=== PATIENT | female | born 1935 | race Two or more races ===

== ENCOUNTER 2017-12-18 16:14 | Inpatient (IN) | payer MEDICARE, OTHER ==
[~2017-12-18] VITALS: Ht 154.9 cm; Wt 47.9 kg
[2017-12-18 17:32] LABS: Basophils # (auto) 0 uL; Basophils % (auto) 0.5 % (0.0-2.0); Eosinophils # (auto) 0 uL; Hematocrit 30.2 % (36.0-46.0); Lymphocytes # (auto) 0.5 uL; Lymphocytes % (auto) 12.5 % (10.0-50.0); Mean Corpuscular Hemoglobin 31.4 pg (28.0-32.0); Mean Corpuscular Hgb Conc. 33.1 g/dL (32.0-36.0); Monocytes # (auto) 0.2 uL; Monocytes % (auto) 4.6 % (0.0-12.0); Neutrophils # (auto) 3.1 uL; Neutrophils % (auto) 82.4 % (37.0-80.0); Platelet Count (auto) 215 10^3/uL (140-450); Red Blood Cells 3.18 10^6/uL (4.0-5.20); Red Cell Distribution Width 14.3 % (11.8-14.3); White Blood Cell 3.8 10^3/uL (4.4-10.8)
[2017-12-18 18:01] LABS: Alanine Aminotransferase 19 U/L (13-56); Albumin 2.7 g/dL (3.4-5.0); Alkaline Phosphatase 102 U/L (45-117); Anion Gap 8 (5-15); Aspartate Aminotransferase 27 U/L (15-37); BUN/Creatinine Ratio 18.9; Bilirubin, Total 0.5 mg/dL (0.2-1.0); Blood Urea Nitrogen 38 mg/dL (7-18); Calcium 7.9 mg/dL (8.5-10.1); Carbon Dioxide 20 mmol/L (21-32); Chloride 107 mmol/L (98-107); GFR African American 31 mL/min; GFR Non-African American 25 mL/min; Glucose 94 mg/dL (74-106); Potassium 4.4 mmol/L (3.5-5.1); Sodium 135 mmol/L (136-145); Total Protein 7.8 g/dL (6.4-8.2)
[2017-12-18] MEDS ORDERED: SODIUM CHLORIDE 0.9% 1,000 ML IVB ONE (18:16)
[2017-12-18] MEDS ORDERED: ACETAMINOPHEN 325 MG TAB PO ONE (18:30)
[2017-12-18 19:15] LABS: INR 1.02 (0.9-1.15); Partial Thromboplastin Time 29.4 sec (23.78-33.04); Prothrombin Time 10.9 sec (9.27-12.13)
[2017-12-18] MEDS ORDERED: TEMAZEPAM 15 MG CAP PO PRN (21:30)
[2017-12-18] MEDS ORDERED: ACETAMINOPHEN 325 MG TAB PO PRN (21:30)
[2017-12-18] MEDS ORDERED: ONDANSETRON HCL 4 MG/2 ML VIAL IV PRN (21:30)
[2017-12-18] MEDS ORDERED: HYDROcodone-ACET 5/325MG TAB PO PRN (21:30)
[2017-12-18] MEDS ORDERED: DOCUSATE SOD 100 MG CAP PO PRN (21:30)
[2017-12-18 22:30] VITALS: BP 167/81
[2017-12-18] MEDS ORDERED: LEVOFLOXACIN 250MG 50 ML IV ONE (23:00)
[2017-12-18] MEDS ORDERED: methylPREDNISolone SOD SUCC 125 MG/2 ML VL IV ONE (23:15)
[2017-12-18 23:17] VITALS: BP 167/81
[2017-12-18] MEDS: hydrALAZINE HCL 25 MG TAB PO SCH (23:41)
[2017-12-18] MEDS: METOPROLOL TARTRATE 50 MG TAB PO SCH (23:42)
[2017-12-19] MEDS: ALBUTEROL SULF 2.5 MG/0.5ML(0.5%) NEB SOLN NEB PRN ×2 (00:03→06:41)
[2017-12-19 01:18] VITALS: BP 167/81
[2017-12-19] MEDS ORDERED: HYDR-4296 PO (04:22)
[2017-12-19] MEDS ORDERED: LEVO25TA6 PO (04:24)
[2017-12-19] MEDS ORDERED: SODI650T PO (04:26)
[2017-12-19] MEDS ORDERED: FURO20TA3 PO (04:32)
[2017-12-19] MEDS ORDERED: SODI15SU PO (04:32)
[2017-12-19] MEDS ORDERED: AML5T PO (04:34)
[2017-12-19] MEDS ORDERED: METO25TA5 PO (04:34)
[2017-12-19] MEDS ORDERED: MAGN400T5 PO (04:35)
[2017-12-19] MEDS ORDERED: HYDR200T36 PO (04:37)
[2017-12-19 05:22] VITALS: BP 152/72
[2017-12-19 05:50] LABS: Basophils # (auto) 0 uL; Basophils % (auto) 0.1 % (0.0-2.0); Eosinophils # (auto) 0 uL; Hematocrit 28.6 % (36.0-46.0); Hemoglobin 9.5 g/dL (12.2-16.2); Lymphocytes # (auto) 0.4 uL; Lymphocytes % (auto) 7.2 % (10.0-50.0); Mean Corpuscular Hemoglobin 31.7 pg (28.0-32.0); Mean Corpuscular Hgb Conc. 33.4 g/dL (32.0-36.0); Monocytes # (auto) 0.1 uL; Monocytes % (auto) 1.1 % (0.0-12.0); Neutrophils # (auto) 5.3 uL; Neutrophils % (auto) 91.6 % (37.0-80.0); Platelet Count (auto) 214 10^3/uL (140-450); Red Blood Cells 3.01 10^6/uL (4.0-5.20); Red Cell Distribution Width 14.3 % (11.8-14.3); White Blood Cell 5.8 10^3/uL (4.4-10.8)
[2017-12-19] MEDS: hydrALAZINE HCL 25 MG TAB PO SCH ×3 (06:03→20:19)
[2017-12-19] MEDS: FUROSEMIDE 20 MG TAB PO SCH ×2 (06:05→18:00)
[2017-12-19 06:14] LABS: Albumin 2.5 g/dL (3.4-5.0); BUN/Creatinine Ratio 20.9; Bilirubin, Total 0.4 mg/dL (0.2-1.0); Calcium 7.7 mg/dL (8.5-10.1); Potassium 4.8 mmol/L (3.5-5.1); Total Protein 7.5 g/dL (6.4-8.2)
[2017-12-19] MEDS ORDERED: LEVOTHYROXINE SODIUM 25 MCG TAB PO SCH (07:00)
[2017-12-19 07:23] LABS: Urine Blood 3+ /uL (Negative); Urine Mucus FEW (None Seen); Urine Specific Gravity 1.013 (1.001-1.035); Urine Sperm PRESENT /hpf (None Seen); Urine WBC 422 /hpf (0 - 5); Urine WBC Clumps PRESENT /hpf (None Seen)
[2017-12-19] MEDS ORDERED: PANTOPRAZOLE 40 MG TAB PO SCH (07:30)
[2017-12-19 07:35] LABS: Urine Bacteria MANY /hpf (None Seen)
[2017-12-19 09:00] VITALS: BP 158/78
[2017-12-19] MEDS ORDERED: HYDROXYCHLOROQUINE SULFATE 200 MG TAB PO SCH (10:00)
[2017-12-19] MEDS: METOPROLOL TARTRATE 50 MG TAB PO SCH ×2 (10:35→20:19)
[2017-12-19 13:00] VITALS: BP 140/59
[2017-12-19] MEDS ORDERED: LEVOFLOXACIN 750MG 150 ML IV SCH (16:15)
[2017-12-19 16:28] LABS: % Iron Saturation 23.6 % (15-50)
[2017-12-19] MEDS ORDERED: SODIUM CHLORIDE 0.9% 1,000 ML IV SCH (16:30)
[2017-12-19 16:36] LABS: Folate (Folic Acid) > 24.00 ng/mL (5.38-24)
[2017-12-19 17:00] VITALS: BP 167/77
[2017-12-19] MEDS ORDERED: LEVOFLOXACIN 250MG 50 ML IV SCH (22:00)
[2017-12-20] MEDS ORDERED: amLODIPine BESYLATE 5 MG TAB PO SCH (10:00)
== END 2017-12-19 21:00 | disposition short-term general hospital (02) | DRG 689 ==
LOC: ER 16:14 → OVERFLOW 16:15 → WEST WING 22:30
PROVIDERS: ADMIT Nurse Practitioner; ATTEND Internal Medicine
DX: N39.0 Urinary tract infection, site not specified (principal); J18.9 Pneumonia, unspecified organism; E44.1 Mild protein-calorie malnutrition; R06.03 Acute respiratory distress; Z88.2 Allergy status to sulfonamides; Z88.8 Allergy status to other drugs, medicaments and biological substances; D63.8 Anemia in other chronic diseases classified elsewhere; E03.9 Hypothyroidism, unspecified; I12.9 Hypertensive chronic kidney disease with stage 1 through stage 4 chronic kidney disease, or unspecified chronic kidney disease; M32.9 Systemic lupus erythematosus, unspecified; N18.3 Chronic kidney disease, stage 3 (moderate); R79.1 Abnormal coagulation profile; Z90.49 Acquired absence of other specified parts of digestive tract
CPT/HCPCS: 36415; 71045; 80053; 81001; 82607; 82746; 83540; 83550; 83880; 84443; 84484; 85025; 85379; 85610; 85730; 87040; 87070; 87086; 87088; 87186; 87205; 93005; 93970; 94640; J1956